=== PATIENT | male | born 1970 | race Caucasian/White ===

== ENCOUNTER 2024-08-31 12:37 | Emergency (ER) | payer BC, SELFPAY ==
[2024-08-31 12:45] VITALS: BP 157/90; PULSE 87; RESP 18; TEMP 36.4; O2SAT 100
[2024-08-31 13:40] VITALS: PULSE 75
[2024-08-31 13:42] VITALS: BP 167/106; PULSE 76; RESP 20; O2SAT 97
--- NOTE | 2024-08-31 13:47 | ECG_ITS ---
Test Date: 2024-08-31 14:06:08 Measurements Intervals [place] Rate: 67 P: -1 [place]: 166 QRS: 56 QRSD: 96 T: 58 QT: 385 QTc: 407 Interpretive Statements SINUS RHYTHM WITH OCCASIONAL VENTRICULAR PREMATURE COMPLEXES INCOMPLETE RIGHT BUNDLE BRANCH BLOCK MINIMAL Q WAVES- ANTEROLATERAL LEADS BORDERLINE T WAVE ABNORMALITY- ANTERIOR LEADS BORDERLINE ECG No previous ECG available for comparison Electronically Signed On 08-31-2024 14:16:31 CDT by Familia Lamar D.O.
[2024-08-31 13:52] VITALS: RESP 20
--- OUTSIDE RECORDS SUMMARY | 2024-08-31 14:06 | XMS_ITS | Continuity of Care Document ---
Author Organization [facility] Address [address] [place] [address] Phone Care Team Providers Care Wildlife Refuge Manager Name Role Phone Lisandro Santacruz MD Unavailable Unavailable Advance Directives Directive Yes / No Effective Date File Name No Information Encounters Encounter Description Practice Location Reason(s) For Visit Diagnoses Date Provider Providers Copied on Encounter [facility], [address], [place], [place], [id number], [place] tel:[phone] [address] [facility] No Information [phone] Neeta Mcmahon. [address] [facility] [address], [place], [place], [id number], [place]. tel:[phone] Family History Family Member Type Diagnosis Age At Onset No Information Payers Payer name Insurance type Covered alliance party ID Authoriza tion(s) No Information Social History Type Description Quantity Date Captured Comments Sex Male Smoking Status No Information Chief Complaint And Reason For Visit No Information Reason For Referral Reason For Referral No Information History Of Present Illness Encounter Date Complaint History Of Prese nt Illness No Information Functional Status Date Functional Assessmen t No Information Instructions Date Instruction Additional Infor mation No Information Assessments Type Assessment Date No Information Patient Care Teams Name Effective Dates (start - stop) Status Members No Information
[2024-08-31] MEDS: SODIUM CHLORIDE 0.9% IV 1,000 ML 999 ML IV CONT ×2 (14:10)
[2024-08-31] MEDS: LORazepam INJ (*CRX) 2 MG/ML VIAL 1 MG IV PUSH (14:11)
[2024-08-31] MEDS: ONDANSETRON INJ 4 MG/2 ML VIAL IV PUSH (14:11)
[2024-08-31] MEDS: cloNIDine HCL 0.1 MG TABLET PO (14:12)
--- NOTE | 2024-08-31 14:49 | ED.OVERDOSE ---
HPI - Overdose General Chief Complaint: Overdose Stated Complaint: od Time Seen by Provider: 08/31/24 13:34 History of Present Illness HPI Narrative: 54-year-old male with past medical history including polysubstance abuse and chronic fentanyl abuse. Patient states that he was snorting some white powder that he was not sure what was in it. He states he felt unwell and took Narcan and immediately had precipitated withdrawal with nausea and vomiting as well as GI upset with potential diarrhea. Patient feels generalized weakness and presents to the emergency department for evaluation. He is not any acute distress, states that he has never felt like this in the past. Does have Narcan at home. States that he was not sure what the powder consisted of but was not similar to any of the other drugs that he has previously had. Denies any other co ingestion such as alcohol, injection use, Tylenol salicylates or any [id number] medications. Related Data Allergies Allergy/AdvReac Type Severity Reaction Status Date / Time Penicillins Allergy Intermediate Hives Verified 08/31/24 14:09 Sulfa (Sulfonamide Allergy Unknown Verified 08/31/24 14:09 Antibiotics) Review of Systems Review of Systems: As reviewed above in HPI [facility] Past Medical History Medical History Migraines Surgical History Surgical History No significant past surgical history Social History Social History Tobacco type: cigarettes Alcohol intake: current Substance use: current Substance use type: opiates and unknown Gender identity (if verbalized by the patient): Male Exam Narrative: GENERAL: Uncomfortable but not any acute distress, awake alert oriented answers questions appropriately. HEAD: [Normocephalic, atraumatic.] EYES: [PERRLA and EOMI.] ENT: Nares clear, no rhinorrhea or epistaxis. Mucous membranes moist. NECK: Supple. CHEST: [Clear to auscultation. No respiratory distress.] HEART: [Regular rate and rhythm]. No murmur heard. [Normal peripheral pulses.] ABDOMEN: [Soft, nondistended], [nontender], [No rigidity or guarding] EXTREMITIES: Normal range of motion. [No edema.] SKIN: Warm, dry, no rash. NEURO: [No focal deficits]. Alert and oriented [x3.] Ambulatory without any difficulty moving all extremities equally. PSYCH: [Normal mood and affect.] Course Vital Signs Vital signs: Vital Signs Temperature 36.4 C 08/31/24 12:45 Pulse Rate 87 08/31/24 12:45 Respiratory Rate 18 08/31/24 12:45 Blood Pressure 157/90 H 08/31/24 12:45 Pulse Oximetry 100 08/31/24 12:45 Temperature 36.4 C 08/31/24 12:45 Pulse Rate 72 08/31/24 17:32 Respiratory Rate 22 H 08/31/24 17:32 Blood Pressure 149/95 H 08/31/24 17:32 Pulse Oximetry 100 08/31/24 17:32 Oxygen Delivery Room Air 08/31/24 17:59 MDM - Overdose MDM Narrative Medical decision making narrative: 54-year-old male with history of polysubstance abuse including chronic fentanyl abuse. He took some white powder insufflation earlier today and began not feeling well. He started taking Narcan as he was concerned that he was about overdose. He felt worse after the Narcan and felt like he was going through withdrawals with nausea vomiting and GI upset with some potential diarrhea. States that he is uncomfortable right now in feels general weakness and nausea persisting. Is not sure what the powder was that he snorted. He otherwise has normal vital signs without any significant blood pressure elevations, no tachycardia, fever, hypoxia. Mucous membranes are moist, normal neurological assessment with a normal gait. Patient likely has some precipitated withdrawal from his Narcan does and potential interaction with whenever substance he insufflated. He does not have any classical toxidrome will picture about him and not any acute distress. Laboratory studies were obtained including toxicological screenings, CBC CMP, EKG. He was given a combination of clonidine, Zofran, Ativan for precipitated withdrawal and placed on nuclear monitoring technician and observed with frequent re-evaluations. Patient had significant improvement in his symptomatology after doses of medications here. He still felt like he was having some restless legs but felt much more calm. Vital signs remained stable. He is ambulatory without any assistance in the emergency department. He did test positive for amphetamines which is likely the substance that he was insufflating. Negative UDS otherwise. No other vital concerns or any laboratory assessment findings that are suspicious for any acute injury. EKG with sinus rhythm and occasional PVC. Patient was provided Valium for his restless legs and re-evaluated. He is safe and stable for discharge home at this time. Medical Records Attestation: I reviewed the patient's medical records. Lab Data Attestation: I reviewed the patient's lab results. 08/31/24 14:43 08/31/24 14:43 Labs: Lab Results 08/31/24 Range/Units 14:43 WBC 6.6 (4.5-10.0) K/mm3 RBC 4.48 L (4.6-6.20) M/mm3 Hgb 12.9 L (14.0-18.0) g/dL Hct 38.4 L (42.0-52.0) % MCV 85.7 (80-100) fl MCH 28.8 (26-34) pg MCHC 33.6 (32-36) g/dl RDW 12.5 (11.5-14.5) % Plt Count 202 (150-375) k/mm3 MPV 9.2 (7.4-10.4) fl Immature Gran % (Auto) 0.3 (0-0.5) % Neut % (Auto) 77.1 H (45.5-73.1) % Lymph % (Auto) 16.2 L (18.3-44.2) % [place] % (Auto) 4.9 (2.6-8.5) % Eos % (Auto) 1.2 (0-4.4) % Baso % (Auto) 0.3 (0.2-1.2) % Lymph # (Auto) 1.07 (0.9-3.2) K/mm3 [place] # (Auto) 0.3 (0.1-0.6) K/mm3 Eos # (Auto) 0.1 (0-0.3) K/mm3 Baso # (Auto) 0.0 (0.0-0.1) K/mm3 Abs Immat Gran (auto) 0.02 (0.00-0.031) K/mm3 Absolute Neuts (auto) 5.1 (1.3-6.7) K/mm3 Absolute Nucleated RBC 0.000 (0.0-0.012) K/mm3 Nucleated RBC % 0.0 (0.0-0.2) % Sodium 139 (137-145) mmol/L Potassium 3.5 (3.4-5.0) mmol/L Chloride 107 (98-107) mmol/L Carbon Dioxide 21 L (22-30) mmol/L Anion Gap 11 (4-12) mmol/L BUN 12 (9-20) mg/dL Creatinine 0.65 L (0.7-1.3) mg/dL Estim Creat Clear Calc Not Reportable Estimated GFR > 60 (59 - ) Glucose 136 H (65-110) mg/dL Calcium 9.0 (8.4-10.2) mg/dL Total Bilirubin 0.3 (0.2-1.3) mg/dL AST 21 (17-59) U/L ALT 17 (6-50) U/L Alkaline Phosphatase 85 (38-126) U/L Total Protein 7.0 (6.3-8.2) g/dL Albumin 4.2 (3.5-5.1) g/dL TSH 0.218 L (0.465-4.680) uIU/mL Salicylates < 1.0 L (2-20) mg/dL Urine Opiates Screen Negative (Negative) Urine Methadone Screen Negative (Negative) Acetaminophen < 10 L (10-30) ug/mL Ur Barbiturates Screen Negative (Negative) Ur Phencyclidine Scrn Negative (Negative) Ur Amphetamine Screen Positive A (Negative) U Benzodiazepines Scrn Negative (Negative) Urine Cocaine Screen Negative (Negative) U Cannabinoids Screen Negative (Negative) Ethyl Alcohol < 10 (<10) mg/dL ECG Data EKG #1: Attestation: I personally reviewed and interpreted this ECG as follows: ECG completion date: 08/31/24 ECG completion time: 14:06 Prior ECG tracings: not available for review Interpretation: No ST segment elevations, depressions or inversions. Sinus rhythm with occasional PVC, incomplete right bundle-branch block. No previous EKG for comparison. QTC 407, QRS 96, [place] 166. Rate of 67 beats per minute. Found to patient's sinus rhythm with occasional PVC. Critical Care Time Critical Care Time Critical Care Time: Yes Total Critical Care Time: 35 Discharge Plan Discharge Clinical Impression: Polysubstance use disorder, Poisoning by opiate or related narcotic, Opiate withdrawal, Amphetamine adverse reaction Patient Disposition: Home Condition: Stable Instructions: Antibiotic Form, Polysubstance Use Disorder (ED) Additional Instructions: You were treated today for opiate withdrawal after the Narcan administration. Your substance that you used today was likely amphetamines based on the urine drug screen. No cause of any injury to organs or any other lab findings that are concerning. Refrain from using any drugs or alcohol in the future. We will send you home with an additional prescription for Narcan. Return with any new or worsening concerns at any time. Patient Language: Tajik Prescriptions: New naloxone [Narcan] 4 mg/actuation spray,non-aerosol 4 mg intranasal Q2M PRN (Reason: opioid overdose) Qty: 2 0RF Rx Instructions: spray 1 dose into ONE nostril; alternate nostrils w each dose until help arrives Follow-up/Referrals: Leonides,Joe Bee MD [Primary Care Provider] - Time of Disposition: 16:45
[2024-08-31 14:51] LABS: Basophils Percent Auto 0.3 % (0.2-1.2); Eosinophils Absolute Auto 0.1 K/mm3 (0-0.3); Eosinophils Percent Auto 1.2 % (0-4.4); Hematocrit 38.4 % (42.0-52.0); Hemoglobin 12.9 g/dL (14.0-18.0); Immature Granulocyte Absolute 0.02 K/mm3 (0.00-0.031); Immature Granulocyte Percent A 0.3 % (0-0.5); Lymphocytes Absolute Auto 1.07 K/mm3 (0.9-3.2); Lymphocytes Percent Auto 16.2 % (18.3-44.2); Mean Corpuscular HGB Conc 33.6 g/dl (32-36); Mean Corpuscular Hemoglobin 28.8 pg (26-34); Mean Corpuscular Volume 85.7 fl (80-100); Mean Platelet Volume 9.2 fl (7.4-10.4); Monocytes Absolute Auto 0.3 K/mm3 (0.1-0.6); Monocytes Percent Auto 4.9 % (2.6-8.5); Neutrophils Absolute Auto 5.1 K/mm3 (1.3-6.7); Neutrophils Percent Auto 77.1 % (45.5-73.1); Platelet Count Result 202 k/mm3 (150-375); Red Blood Count 4.48 M/mm3 (4.6-6.20); Red Cell Distribution Width 12.5 % (11.5-14.5); White Blood Count 6.6 K/mm3 (4.5-10.0)
[2024-08-31 15:07] VITALS: PULSE 68; RESP 19; O2SAT 97
[2024-08-31 15:07] LABS: Acetaminophen < 10 ug/mL (10-30); Barbiturate Screen Urine Negative (Negative); Benzodiazepines Screen Urine Negative (Negative); Ethanol < 10 mg/dL (<10); Salicylate < 1.0 mg/dL (2-20)
[2024-08-31 15:08] LABS: Cannabinoid Screen Urine Negative (Negative); Cocaine Screen Urine Negative (Negative); Methadone Screen Urine Negative (Negative); Opiate Screen Urine Negative (Negative); Phencyclidine Screen Urine Negative (Negative)
--- OUTSIDE RECORDS SUMMARY | 2024-08-31 15:32 | XMS_ITS | Continuity of Care Document ---
Author Organization Located within [facility] Address [address] [place] [address] Phone Care Team Providers Care Metallography Teacher Name Role Phone Lisandro Santacruz MD Unavailable Unavailable Advance Directives Directive Yes / No Effective Date File Name No Information Encounters Encounter Description Practice Location Reason(s) For Visit Diagnoses Date Provider Providers Copied on Encounter [facility], [address], [place], [place], [address], [place] tel:[phone] [address] [facility] No Information [phone] Neeta Mcmahon. [address] [facility] [address], [place], [place], [address], [place]. tel:[phone] Family History Family Member Type Diagnosis Age At Onset No Information Payers Payer name Insurance type Covered republican ID Authoriza tion(s) No Information Social History [...]
[2024-08-31 15:33] LABS: Amphetamine Screen Urine Positive (Negative)
[2024-08-31 16:04] LABS: Alanine Aminotransferase 17 U/L (6-50); Albumin Level 4.2 g/dL (3.5-5.1); Alkaline Phosphatase 85 U/L (38-126); Anion Gap 11 mmol/L (4-12); Aspartate Amino Transferase 21 U/L (17-59); Bilirubin,Total 0.3 mg/dL (0.2-1.3); Blood Urea Nitrogen 12 mg/dL (9-20); Carbon Dioxide 21 mmol/L (22-30); Chloride 107 mmol/L (98-107); Estimated Glomerular Filt Rate > 60; Glucose 136 mg/dL (65-110); Potassium 3.5 mmol/L (3.4-5.0); Sodium 139 mmol/L (137-145)
[2024-08-31 16:35] LABS: Thyroid Stimulating Hormone 0.218 uIU/mL (0.465-4.680)
[2024-08-31] MEDS: diazePAM INJ (*CRX) 10 MG/2 ML SYRINGE 5 MG IV PUSH (16:39)
[2024-08-31 17:32] VITALS: BP 149/95; PULSE 72; RESP 22; O2SAT 100
== END 2024-08-31 18:03 | disposition home or self-care (01) ==
PROVIDERS: Emergency Provider Student in an Organized Health Care Education/Training Program; PCP Internal Medicine
DX: F19.90 Other psychoactive substance use, unspecified, uncomplicated (principal); T40.601A Poisoning by unspecified narcotics, accidental (unintentional), initial encounter; F11.23 Opioid dependence with withdrawal; T43.625A Adverse effect of amphetamines, initial encounter
CPT/HCPCS: 36415; 80053; 80143; 80179; 80307; 82077; 84443; 85025; 93005; 96361; 96374; 96375; 99284; A9270; J2060; J2405; J3360; J7030